=== PATIENT | female | born 1940 | race Caucasian/White ===

== ENCOUNTER 2017-08-03 08:16 | Outpatient (CLI) | payer MEDICARE ==
[2015-04-07 21:24] VITALS: BP 175/96
[2017-08-03 09:31] LABS: BASOPHILS % 1.1 (0.0-1.5); EOSINOPHILS % 3.3 % (0.0-6.8); MEAN CORPUSCULAR HEMOGLOBIN 29.4 pg (28.0-34.0); MEAN CORPUSCULAR VOLUME 85.4 fl (80.0-100.0); MONOCYTES % 4.4 % (0.0-11.0); NEUTROPHILS # 4.3 # k/uL (1.4-7.7)
[2017-08-03 09:57] LABS: eGFR (African) > 60; eGFR (Non-African) > 60
== END 2017-08-03 08:17 ==
LOC: LAB 08:16
PROVIDERS: ATTEND Family Medicine
DX: E11.9 Type 2 diabetes mellitus without complications (principal); I10 Essential (primary) hypertension
CPT/HCPCS: 36415; 80053; 83036; 85025

== ENCOUNTER 2017-08-30 14:38 | Outpatient (CLI) | payer MEDICARE ==
[2015-04-07 21:24] VITALS: BP 175/96
--- NOTE | 2017-08-30 16:15 | OP Clinic Progress Note ---
REASON FOR VISIT: This pleasant 77-year-old lady has had right-sided pressure and discomfort in her ear and muffled hearing. She has been nicely treated with Augmentin with some improvement. She still persists with some ache and discomfort in the right ear, mild disequilibrium, pressure and discomfort and tension in the right side of her neck. I believe she has also taken cefuroxime 200 mg twice a day. She still has a retracted and erythematous eardrum. There is pressure and discomfort. We went over risks, options, and choices with her. I felt with the ongoing persistent nature of it, perhaps a myringotomy would be reasonable. There is less than a 1% chance that the site would not heal over. Under the microscope and using topical Phenol anesthesia, a circumferential- type of anterior one-third, 25 percent of the eardrum was given a myringotomy. A small amount of fluid was suctioned and aspirated with a #3 suction. A paper patch was placed. Symptomatically, the patient felt that she could hear much better. The tension and pressure in the neck was better and she also felt generalized less ear discomfort. There is some probability that she might need additional antibiotics but it is not grossly infected. Again, the small amount of fluid suctioned was nonpurulent. More of a tension pressure issue at this point. PLAN: I will see her back in a month. If there are any issues, she will call the office sooner and continue her follow up care with Dr. Rufus Mcdaniel. cc: Dr. Rufus HE
== END 2017-08-30 14:40 ==
LOC: ENT 14:38
PROVIDERS: ATTEND Otolaryngology
DX: H92.01 Otalgia, right ear (principal)
CPT/HCPCS: 69420; G0463

== ENCOUNTER 2017-09-13 23:20 | Emergency (ER) | payer MEDICARE ==
[2017-09-13] MEDS ORDERED: LABETALOL HCL 100MG/20ML VIAL ONE (23:29)
[2017-09-13] MEDS ORDERED: LABETALOL HCL 100MG/20ML VIAL IVP STA (23:34)
[2017-09-13 23:46] LABS: BASOPHILS % 0.8 (0.0-1.5); EOSINOPHILS % 2.6 % (0.0-6.8); MEAN CORPUSCULAR HEMOGLOBIN 27.6 pg (28.0-34.0); MEAN CORPUSCULAR VOLUME 89.9 fl (80.0-100.0); MONOCYTES % 3.7 % (0.0-11.0); NEUTROPHILS # 5.1 # k/uL (1.4-7.7)
--- NOTE | 2017-09-13 23:52 | ED Physician Documentation ---
General Adult - HISTORIAN Historian: patient - HPI Stated Complaint: blood pressure up Chief Complaint: General Adult Additional Information: BP elevated today. Systolic 200+. In ER, 236/107. Has neck and MUÑOZ. BP med changed [address] Mcdaniel in attempt to better control her BP Had been on atenolol-hctz combo. Now on metoprolol 50 mg BID. Took a 3rd dose metoprolol this evening. Also take 40 mg lisinopril each am. NIDDM on metformin and glipezide. - ROS CONST: no problems - PAST HX Past History: hypertension Other History: diabetes Type 2 Surgeries/Procedures: hysterectomy Allergies/Adverse Reactions: Allergies Allergy/AdvReac Type Severity Reaction Status Date / Time Sulfa (Sulfonamide Allergy Verified 09/13/17 23:53 Antibiotics) Home Medications: Ambulatory Orders Medication Instructions Recorded Lisinopril [Lisinopril] 40 mg PO AM 09/13/17 Metformin HCl [Glucophage] 500 mg PO QID 09/13/17 Metoprolol Tartrate [Lopressor] 50 mg PO BID 09/13/17 gliPIZIDE [Glucotrol] 10 mg PO BID 09/13/17 Hydrochlorothiazide 25 mg PO DAILY #30 tablet 09/14/17 Potassium Chloride [Klor-Con M15] 15 meq PO DAILY #30 tab.er.prt 09/14/17 - SOCIAL HX Smoking History: non-smoker - FAMILY HX Family History: No - VITAL SIGNS Vital Signs: Vital Signs Temp Pulse Resp BP Pulse Ox 175/96 04/07/15 21:23 - REVIEWED ASSESSMENTS Nursing Assessment Reviewed: Yes Vitals Reviewed: Yes ED Results Lab/Radiology - Orders Orders: ED Orders Category Date Time Status Continuous EKG monitoring Q1H Care 09/13/17 23:34 Ordered Continuous Pulse Oximetry Q1H Care 09/13/17 23:34 Ordered CHEST 1 VIEW [RAD] Stat Exams 09/13/17 Ordered CBC/PLATELET/DIFF Routine Lab 09/13/17 Ordered CMP Routine Lab 09/13/17 Ordered TROPONIN I (cTnI) Stat Lab 09/13/17 Ordered UA W/MICRO IF INDICATED Routine Lab 09/13/17 23:34 Ordered Labetalol HCl [Trandate] Med 09/13/17 23:29 Discontinued 100 mg .ROUTE .STK-MED ONE Labetalol HCl [Trandate] Med 09/13/17 23:34 Stat 5 mg IVP NOW STA EKG WITH COMPARISON Stat Ther 09/13/17 Ordered General Adult Physical Exam - PHYSICAL EXAM GENERAL APPEARANCE: no distress EENT: eye inspection normal, ENT inspection normal, pharynx normal (Mallampati 2 ), TAVON NECK: normal inspection, supple RESPIRATORY: no resp distress, breath sounds normal CVS: reg rate & rhythm, heart sounds normal, no murmur ABDOMEN: soft, normal bowel sounds, no distension, non-tender BACK: normal inspection, no CVA tenderness, other (no vertebral tenderness) SKIN: warm/dry EXTREMITIES: non-tender, no evidence of injury NEURO: CN's nml as tested, motor nml, sensation nml, cognition normal Discharge Clincal Impression: Hypertension Qualifiers: Hypertension type: unspecified secondary hypertension Qualified Code(s): I15.9 - Secondary hypertension, unspecified; I15 - Secondary hypertension Prescriptions: Hydrochlorothiazide 25 mg PO DAILY #30 tablet Potassium Chloride [Klor-Con M15] 15 meq PO DAILY #30 tab.er.prt Referrals: Rufus Mcdaniel MD [Primary Care Provider] - 2 Days Additional Instructions: Make an appointment to see Dr. Mcdaniel in the next 5-10 days to have your blood pressure and potassium level evaluated. Continue your usual medications. You have prescriptions for hydrochlorothiazide and potassium at [facility]. Return to the ER if you blood pressure is agiain out of control. Condition: Good Disposition: 01 HOME, SELF-CARE Decision to Admit: NO Decision Time: 00:55
[2017-09-14] LABS: eGFR (African) > 60; eGFR (Non-African) > 60
[2017-09-14] MEDS ORDERED: LABETALOL HCL 100MG/20ML VIAL IVP STA ×2 (00:22)
[2017-09-14] MEDS ORDERED: LORazepam 1 MG TABLET PO ONE (00:22)
[2017-09-14] MEDS ORDERED: HYDROCHLOROTHIAZIDE 25 MG TABLET PO ONE (00:22)
[2017-09-14 01:29] VITALS: BP 197/93
[2017-09-14 05:37] LABS: APPEARANCE,URINE CLEAR (CLEAR); COLOR,URINE YELLOW (YELLOW); OCCULT BLOOD,URINE TRACE-LYSED (NEGATIVE); PH URINE 7.5 (5.0 - 8.0); UROBILINOGEN URINE 0.2 Eu (0.2-1.0)
--- NOTE | 2017-09-14 07:03 | Diagnostic Imaging Report ---
SHANNON FIELDS [facility] [address] [facility] [address] [address] Report Submission Date: Sep 14, 2017 12:00:52 AM CUSTOMER COMPLAINT CLERK Patient Study Name: MADELINE ZAMORA Date: Sep 13, 2017 11:53:27 PM CUSTOMER COMPLAINT CLERK Modality Type: CR Gender: F Description: CHEST : 38 Institution: [facility] Physician: SHANNON FIELDS Portable chest History: Hypertension Findings: The exam is limited due to expiratory technique. There is no confluent infiltrate or pleural effusion. Heart size and pulmonary vascularity are normal. Osseous structures are unremarkable. Impression: Negative expiratory chest. Electronically signed on Sep 14, 2017 12:00:52 AM CUSTOMER COMPLAINT CLERK by: Claude HE
== END 2017-09-14 01:20 | disposition home or self-care (01) ==
LOC: ED 23:20
DX: I15.9 Secondary hypertension, unspecified (principal)
CPT/HCPCS: 71010; 80053; 81002; 84484; 85025; J3490; 96374; 99283; S1016

== ENCOUNTER 2017-10-04 13:59 | Outpatient (CLI) | payer MEDICARE ==
--- NOTE | 2017-10-05 12:35 | OP Clinic Progress Note ---
REASON FOR VISIT: Danica is seen in follow up from a right ear myringotomy with placement of a small paper patch over the right ear. She has had a lot of pressure and discomfort in that ear. She has also had tinnitus and reduced hearing. Mostly it has gotten better she feels like, although she hears better, maybe the ringing may be a little more in that right ear but it does not seem to bother her. More important to her is that a lot of that deep ear pressure and generalized discomfort has principally abated. PLAN: There is still a small hard crust on that eardrum. It is a little bit hard fixed currently and I put antibiotic ointment on it. I will see her back in about 2 weeks and I should be able to lift it off with the use of a microscope here in the clinic. Hopefully, the ear will feel even better and perhaps some of the tinnitus may basilia. cc: Dr. Rufus HE
== END 2017-10-04 14:00 ==
LOC: ENT 13:59
PROVIDERS: ATTEND Otolaryngology
DX: Z48.89 Encounter for other specified surgical aftercare (principal); H93.19 Tinnitus, unspecified ear; H91.8X9 Other specified hearing loss, unspecified ear
CPT/HCPCS: G0463

== ENCOUNTER 2017-10-18 13:43 | Outpatient (CLI) | payer MEDICARE ==
--- NOTE | 2017-10-19 10:02 | OP Clinic Progress Note ---
REASON FOR VISIT: Danica is seen in follow up of a right ear myringotomy and paper patch. She has had deep right ear pain and discomfort and significant disequilibrium imbalance. She feels like her ears are significantly improved without putting an exact percent on it. The deep aching has significantly diminished, also, her balance has markedly improved both as subjective estimations of her right ear symptoms. Under the microscope, I debrided and cleaned a small scab off the right eardrum. There is no residual perforation with the totally intact eardrum. The umbo is still moderately retracted. There is no middle ear fluid. PLAN: Danica is discharged to the continued care of Dr. Mcdaniel with an estimate of maybe 80% of this type of procedure remain symptom free. Maybe 20% to 25% of the time, the procedure might need to be repeated. I reviewed that general probability with Danica. Again, she is to return to the continued care of Dr. Rufus Mcdaniel with no specific follow up in this clinic. cc: Dr. Rufus Mcdaniel. NERI
== END 2017-10-18 13:44 ==
LOC: ENT 13:43
PROVIDERS: ATTEND Otolaryngology
DX: Z48.89 Encounter for other specified surgical aftercare (principal)
CPT/HCPCS: G0463

== ENCOUNTER 2018-08-01 11:24 | Outpatient (CLI) | payer MEDICARE ==
[2018-08-01 13:04] LABS: eGFR (Non-African) > 60
[2018-08-01 17:11] LABS: BASO % 0.6 % (0.0-1.5); EOS % 2.3 % (0.0-6.8); LYMPH ABS # 2.52 thou/uL (0.60-4.00); MCH. 27.9 pg (28.0-34.0); MCV 85.4 fL (80.0-100.0); MONOCYTE % 5.2 % (0.0-11.0); PLATELET COUNT 416 thou/uL (130-400)
== END 2018-08-01 11:25 ==
LOC: LAB 11:24
PROVIDERS: ATTEND Family Medicine
DX: I10 Essential (primary) hypertension (principal); E11.9 Type 2 diabetes mellitus without complications
CPT/HCPCS: 36415; 80053; 83036; 85025

== ENCOUNTER 2019-07-29 15:36 | Outpatient (CLI) | payer MEDICARE ==
[2019-07-29 16:18] LABS: eGFR (Non-African) > 60
[2019-07-29 16:33] LABS: A1C 5.7 % (<5.7)
[2019-07-29 16:40] LABS: BASOPHILS % 0.6 % (0.0-1.5); NEUTROPHILS # 5.2 # k/uL (1.4-7.7)
== END 2019-07-29 15:39 ==
LOC: LAB 15:36
PROVIDERS: ATTEND Family Medicine
DX: E11.9 Type 2 diabetes mellitus without complications (principal); I10 Essential (primary) hypertension
CPT/HCPCS: 36415; 80053; 83036; 85025